=== PATIENT | female | born 1935 | race Caucasian/White ===

== ENCOUNTER → 2018-08-17 | Outpatient (CLI) | payer MEDICARE, OTHER ==
--- NOTE | 2018-08-17 17:38 | Diagnostic Imaging Report ---
CLINICAL INDICATION: Patient with peripheral arterial disease. COMPARISON: None. EXAM: Real-time carotid Doppler duplex imaging is performed bilaterally. Peak systolic velocity, ICA/CCA peak systolic ratio, spectral analysis, and vascular morphology are studied. FINDINGS: ARTERY VELOCITY Right Left CCA 0.81 m/s 0.60 m/s ICA 0.59 m/s 0.70 m/s ECA 0.84 m/s 0.67 m/s ICA/CCA 0.7 1.2 VERT.ART Antegrade Antegrade There is no significant atherosclerotic disease. IMPRESSION: There is no grayscale or Doppler evidence of significant vascular stenosis. Dictated by: Dictated on workstation # [id number]
== END ==
LOC: CARD 09:23
PROVIDERS: ATTEND Family Medicine
DX: I65.23 Occlusion and stenosis of bilateral carotid arteries (principal); I73.9 Peripheral vascular disease, unspecified; I08.3 Combined rheumatic disorders of mitral, aortic and tricuspid valves
CPT/HCPCS: 93306; 93880